=== PATIENT | male | born 1990 | race Two or more races ===

== ENCOUNTER 2020-10-27 19:48 | Emergency (ER) | payer MEDICAID, OTHER, SELFPAY ==
[~2020-10-27] VITALS: Ht 180.3 cm; Wt 72.6 kg
[2020-10-27] MEDS ORDERED: ACETAMINOPHEN 325 MG TAB PO ONE (20:45)
[2020-10-27 21:18] LABS: Basophils # (auto) 0 10 ^3/uL (0-0.2); Basophils % (auto) 0.3 % (0.0-2.0); Eosinophils # (auto) 0 10 ^3/uL (0-0.8); Eosinophils % (auto) 0.1 % (0.0-7.0); Hematocrit 47.3 % (41.0-53.0); Hemoglobin 16.6 g/dL (13.5-17.5); Lymphocytes # (auto) 1.6 10 ^3/uL (0.4-5.4); Lymphocytes % (auto) 30.8 % (10.0-50.0); Mean Corpuscular Hemoglobin 29.4 pg (28.0-32.0); Monocytes # (auto) 0.7 10 ^3/uL (0-1.3); Monocytes % (auto) 12.7 % (0.0-12.0); Neutrophils % (auto) 56.1 % (37.0-80.0); Nucleated Red Blood Cells % 0.3 %; Red Blood Cells 5.63 10^6/uL (4.5-5.90); Red Cell Distribution Width 13.4 % (11.8-14.3); White Blood Cell 5.4 10^3/uL (4.4-10.8)
[2020-10-27 21:40] LABS: Albumin 3.4 g/dL (3.4-5.0); Calcium 8.5 mg/dL (8.5-10.1); Potassium 3.7 mmol/L (3.5-5.1)
[2020-10-27 21:46] LABS: BUN/Creatinine Ratio 10.6; Bilirubin, Total 0.5 mg/dL (0.2-1.0); Total Protein 8.2 g/dL (6.4-8.2)
[2020-10-27] MEDS ORDERED: IBUPROFEN 600 MG TAB PO ONE (22:15)
[2020-10-28] MEDS ORDERED: cefTRIAXone 1GM/50ML D5W 50 ML IV ONE (04:00)
[2020-10-28] MEDS ORDERED: DOXYCYCLINE 100 MG TAB/CAP PO ONE (04:00)
[2020-10-28] MEDS ORDERED: methylPREDNISolone SOD SUCC 125 MG/2 ML VL IV ONE (04:00)
[2020-10-28] MEDS ORDERED: SODIUM CHLORIDE 0.9% 1,000 ML IV ONE (04:15)
[2020-10-28] MEDS ORDERED: ONDANSETRON HCL 4 MG/2 ML VIAL IV ONE (06:00)
[2020-10-28 07:46] VITALS: BP 108/59
== END 2020-10-28 08:03 | disposition home or self-care (01) ==
LOC: ER 19:48
DX: U07.1 COVID-19 (principal)
CPT/HCPCS: 36415; 71045; 80053; 85025; 87426; 96365; 96375; 99285; J0696; J2405; J2930; J7030

== ENCOUNTER 2020-11-02 13:14 | Inpatient (IN) | payer MEDICAID, OTHER ==
[~2020-11-02] VITALS: Ht 180.3 cm; Wt 79.7 kg
[2020-11-02 14:25] LABS: Basophils # (auto) 0 10 ^3/uL (0-0.2); Basophils % (auto) 0.2 % (0.0-2.0); Eosinophils # (auto) 0.2 10 ^3/uL (0-0.8); Eosinophils % (auto) 1.8 % (0.0-7.0); Hematocrit 47.1 % (41.0-53.0); Hemoglobin 16.7 g/dL (13.5-17.5); Lymphocytes # (auto) 1.4 10 ^3/uL (0.4-5.4); Lymphocytes % (auto) 14.6 % (10.0-50.0); Mean Corpuscular Hemoglobin 29.3 pg (28.0-32.0); Mean Corpuscular Hgb Conc. 35.5 g/dL (32.0-36.0); Mean Corpuscular Volume 82.5 fL (80.0-100.0); Monocytes # (auto) 1.2 10 ^3/uL (0-1.3); Monocytes % (auto) 12.5 % (0.0-12.0); Neutrophils # (auto) 6.9 10 ^3/uL (1.6-8.6); Neutrophils % (auto) 70.9 % (37.0-80.0); Nucleated Red Blood Cells % 0.1 %; Red Blood Cells 5.71 10^6/uL (4.5-5.90); White Blood Cell 9.7 10^3/uL (4.4-10.8)
[2020-11-02 15:01] LABS: Albumin 3.2 g/dL (3.4-5.0); Calcium 9.1 mg/dL (8.5-10.1); Potassium 3.6 mmol/L (3.5-5.1)
[2020-11-02 15:04] LABS: BUN/Creatinine Ratio 13.5; Bilirubin, Total 1.6 mg/dL (0.2-1.0); Total Protein 9.3 g/dL (6.4-8.2)
[2020-11-02] MEDS ORDERED: ACETAMINOPHEN 500 MG TAB PO ONE (17:00)
[2020-11-02] MEDS ORDERED: cefTRIAXone 1GM/50ML D5W 50 ML IV ONE (17:15)
[2020-11-02] MEDS ORDERED: ENOXAPARIN SOD 80 MG/0.8ML SYRINGE SC ONE (17:15)
[2020-11-02] MEDS ORDERED: AZITHROMYCIN 500MG/ 250ML 250 ML IV ONE (17:15)
[2020-11-02] MEDS ORDERED: LABETALOL HCL 5 MG/ML 4ML SYRINGE IV PRN (20:45)
[2020-11-02] MEDS ORDERED: MORPHINE SULFATE INJECTION 2 MG/ML SYRG IV PRN (20:45)
[2020-11-02] MEDS ORDERED: ACETAMINOPHEN 500 MG TAB PO PRN (20:45)
[2020-11-02] MEDS ORDERED: ONDANSETRON HCL 4 MG/2 ML VIAL IV PRN (20:45)
[2020-11-02] MEDS ORDERED: DOCUSATE CALCIUM 240 MG CAP PO PRN (20:45)
[2020-11-02] MEDS ORDERED: NITROGLYCERIN 0.4 MG SL TAB SL PRN (20:45)
[2020-11-02] MEDS: BUDESONIDE (INHALATION) 180 MCG IH IN SCH (22:00)
[2020-11-02] MEDS: ENOXAPARIN SOD 40 MG/0.4 ML SYRINGE SC SCH (22:00)
[2020-11-03 03:52] VITALS: BP 128/86
[2020-11-03 04:25] LABS: Basophils # (auto) 0 10 ^3/uL (0-0.2); Basophils % (auto) 0.3 % (0.0-2.0); Eosinophils # (auto) 0.2 10 ^3/uL (0-0.8); Eosinophils % (auto) 2.2 % (0.0-7.0); Hematocrit 45.6 % (41.0-53.0); Hemoglobin 15.9 g/dL (13.5-17.5); Lymphocytes # (auto) 1.4 10 ^3/uL (0.4-5.4); Lymphocytes % (auto) 13.5 % (10.0-50.0); Mean Corpuscular Hemoglobin 29.1 pg (28.0-32.0); Mean Corpuscular Hgb Conc. 34.9 g/dL (32.0-36.0); Mean Corpuscular Volume 83.4 fL (80.0-100.0); Monocytes # (auto) 1.5 10 ^3/uL (0-1.3); Monocytes % (auto) 14.2 % (0.0-12.0); Neutrophils # (auto) 7.3 10 ^3/uL (1.6-8.6); Neutrophils % (auto) 69.8 % (37.0-80.0); Nucleated Red Blood Cells % 0.1 %; Red Blood Cells 5.47 10^6/uL (4.5-5.90); Red Cell Distribution Width 13.1 % (11.8-14.3); White Blood Cell 10.4 10^3/uL (4.4-10.8)
[2020-11-03 04:45] LABS: Albumin 3.1 g/dL (3.4-5.0); Calcium 8.9 mg/dL (8.5-10.1); Magnesium 2.8 mg/dL (1.6-2.6); Potassium 3.3 mmol/L (3.5-5.1)
[2020-11-03 04:53] LABS: BUN/Creatinine Ratio 21.8; Bilirubin, Total 1.3 mg/dL (0.2-1.0); CRP High Sensitivity 13.3 mg/dL (< 0.3); Total Protein 8.8 g/dL (6.4-8.2)
[2020-11-03 04:58] LABS: Thyroid Stimulating Hormone 0.51 uIU/mL (0.358-3.74)
[2020-11-03] MEDS: ALBUTEROL SULF HFA 90MCG INH 200DOSE IN PRN (07:11)
[2020-11-03] MEDS: BUDESONIDE (INHALATION) 180 MCG IH IN SCH ×2 (07:11→22:00)
[2020-11-03 09:00] VITALS: BP 128/81
[2020-11-03] MEDS ORDERED: cefTRIAXone 1GM/50ML D5W 50 ML IV SCH (09:00)
[2020-11-03] MEDS ORDERED: AZITHROMYCIN 500MG/ 250ML 250 ML IV SCH (10:00)
[2020-11-03] MEDS: ENOXAPARIN SOD 40 MG/0.4 ML SYRINGE SC SCH ×2 (10:00→21:47)
[2020-11-03] MEDS: ZINC SULFATE 220mg CAP or TAB PO SCH (10:09)
[2020-11-03] MEDS: ASCORBIC ACID 1,000 MG TAB PO SCH (10:09)
[2020-11-03] MEDS: PANTOPRAZOLE 40 MG TAB PO SCH (10:09)
[2020-11-03] MEDS: DexAMETHasone SOD PHOS 10MG/1ML VIAL INJ IV SCH (10:09)
[2020-11-03] MEDS: CHOLECALCIFEROL (VITD3) 2,000 UNIT CAP/TAB PO SCH (10:09)
[2020-11-03] MEDS: MORPHINE SULFATE INJECTION 2 MG/ML SYRG IV PRN (10:10)
[2020-11-03] MEDS ORDERED: REMDESIVIR PER PHARMACY 0 ML IV SCH (10:15)
[2020-11-03] MEDS ORDERED: POTASSIUM EFFERVESENT TAB 25 MEQ GT ONE (10:30)
[2020-11-03] MEDS: DOXYCYCLINE 100MG/250ML 250 ML IV SCH ×2 (12:56→21:47)
[2020-11-03] MEDS: guaiFENesin-CODEINE Liq 5 ML UD PO PRN ×3 (13:03→23:08)
[2020-11-03] MEDS ORDERED: REMDESIVIR 200 MG in NS 210ml LOADING DOSE ADULT IV ONE (15:00)
[2020-11-03 17:00] VITALS: BP 117/84
[2020-11-03 20:00] VITALS: BP 116/76
[2020-11-03 22:00] VITALS: BP 127/72
[2020-11-04] MEDS: ALBUTEROL SULF HFA 90MCG INH 200DOSE IN PRN ×3 (01:28→22:18)
[2020-11-04 05:00] VITALS: BP 104/66
[2020-11-04 05:07] LABS: Urine WBC None Seen /hpf (0 - 3)
[2020-11-04] MEDS: guaiFENesin-CODEINE Liq 5 ML UD PO PRN ×4 (05:19→22:45)
[2020-11-04 05:20] LABS: Urine Bacteria NONE SEEN /hpf (None Seen); Urine Blood Negative /uL (Negative); Urine Specific Gravity 1.009 (1.001-1.035)
[2020-11-04] MEDS: BUDESONIDE (INHALATION) 180 MCG IH IN SCH ×2 (07:34→22:17)
[2020-11-04 08:02] LABS: Basophils # (auto) 0 10 ^3/uL (0-0.2); Basophils % (auto) 0.3 % (0.0-2.0); Eosinophils # (auto) 0 10 ^3/uL (0-0.8); Eosinophils % (auto) 0.1 % (0.0-7.0); Hematocrit 41.4 % (41.0-53.0); Hemoglobin 14.4 g/dL (13.5-17.5); Lymphocytes # (auto) 1.6 10 ^3/uL (0.4-5.4); Lymphocytes % (auto) 18.5 % (10.0-50.0); Mean Corpuscular Hemoglobin 29.1 pg (28.0-32.0); Mean Corpuscular Hgb Conc. 34.7 g/dL (32.0-36.0); Monocytes # (auto) 1.1 10 ^3/uL (0-1.3); Monocytes % (auto) 12.2 % (0.0-12.0); Neutrophils % (auto) 68.9 % (37.0-80.0); Nucleated Red Blood Cells % 0.1 %; Red Blood Cells 4.93 10^6/uL (4.5-5.90); Red Cell Distribution Width 13.3 % (11.8-14.3); White Blood Cell 8.8 10^3/uL (4.4-10.8)
[2020-11-04 08:22] LABS: Albumin 2.5 g/dL (3.4-5.0); Calcium 8.3 mg/dL (8.5-10.1); Potassium 3.6 mmol/L (3.5-5.1)
[2020-11-04 08:24] LABS: BUN/Creatinine Ratio 19.7
[2020-11-04 08:27] LABS: Bilirubin, Total 0.8 mg/dL (0.2-1.0); Total Protein 7.8 g/dL (6.4-8.2)
[2020-11-04] MEDS: ENOXAPARIN SOD 40 MG/0.4 ML SYRINGE SC SCH ×2 (08:48→22:15)
[2020-11-04] MEDS: ZINC SULFATE 220mg CAP or TAB PO SCH (08:48)
[2020-11-04] MEDS: PANTOPRAZOLE 40 MG TAB PO SCH (08:48)
[2020-11-04] MEDS: DOXYCYCLINE 100MG/250ML 250 ML IV SCH ×2 (08:48→22:15)
[2020-11-04] MEDS: CHOLECALCIFEROL (VITD3) 2,000 UNIT CAP/TAB PO SCH (08:48)
[2020-11-04] MEDS: DexAMETHasone SOD PHOS 10MG/1ML VIAL INJ IV SCH (08:48)
[2020-11-04] MEDS: ASCORBIC ACID 1,000 MG TAB PO SCH (08:48)
[2020-11-04 09:00] VITALS: BP 118/71
[2020-11-04 13:00] VITALS: BP 116/67
[2020-11-04] MEDS: REMDESIVIR 100mg 100 MG in SODIUM CHL 0.9% 230 ML IV SCH (16:10)
[2020-11-04 17:00] VITALS: BP 121/69
[2020-11-04 20:00] VITALS: BP 116/76
[2020-11-04 22:00] VITALS: BP 125/57
[2020-11-04] MEDS: MORPHINE SULFATE INJECTION 2 MG/ML SYRG IV PRN (22:46)
[2020-11-05 05:00] VITALS: BP 110/67
[2020-11-05] MEDS: guaiFENesin-CODEINE Liq 5 ML UD PO PRN (05:57)
[2020-11-05] MEDS: ALBUTEROL SULF HFA 90MCG INH 200DOSE IN PRN ×2 (07:08→22:55)
[2020-11-05] MEDS: BUDESONIDE (INHALATION) 180 MCG IH IN SCH ×2 (07:08→22:00)
[2020-11-05 07:15] LABS: Albumin 2.4 g/dL (3.4-5.0); BUN/Creatinine Ratio 14.7; Calcium 8.2 mg/dL (8.5-10.1); Potassium 3.8 mmol/L (3.5-5.1)
[2020-11-05 07:17] LABS: Bilirubin, Total 0.6 mg/dL (0.2-1.0); Total Protein 7.3 g/dL (6.4-8.2)
[2020-11-05 09:00] VITALS: BP 111/71
[2020-11-05] MEDS: DexAMETHasone SOD PHOS 10MG/1ML VIAL INJ IV SCH (09:10)
[2020-11-05] MEDS: CHOLECALCIFEROL (VITD3) 2,000 UNIT CAP/TAB PO SCH (09:11)
[2020-11-05] MEDS: ZINC SULFATE 220mg CAP or TAB PO SCH (09:11)
[2020-11-05] MEDS: ENOXAPARIN SOD 40 MG/0.4 ML SYRINGE SC SCH ×2 (09:11→21:09)
[2020-11-05] MEDS: ASCORBIC ACID 1,000 MG TAB PO SCH (09:11)
[2020-11-05] MEDS: DOXYCYCLINE 100MG/250ML 250 ML IV SCH ×2 (09:11→21:09)
[2020-11-05] MEDS: PANTOPRAZOLE 40 MG TAB PO SCH (09:40)
[2020-11-05] MEDS ORDERED: guaiFENesin-DM 100/10mg/5ml SYR PO ONE (12:30)
[2020-11-05 13:00] VITALS: BP 117/71
[2020-11-05] MEDS: REMDESIVIR 100mg 100 MG in SODIUM CHL 0.9% 230 ML IV SCH (14:37)
[2020-11-05 17:00] VITALS: BP 117/64
[2020-11-05 20:00] VITALS: BP 114/70
[2020-11-05] MEDS: guaiFENesin-DM 100/10mg/5ml SYR PO PRN (21:09)
[2020-11-05] MEDS: MORPHINE SULFATE INJECTION 2 MG/ML SYRG IV PRN (21:38)
[2020-11-05 22:00] VITALS: BP 114/72
[2020-11-06 01:55] VITALS: BP 114/72
[2020-11-06 05:00] VITALS: BP 103/62
[2020-11-06 07:07] LABS: Basophils # (auto) 0 10 ^3/uL (0-0.2); Basophils % (auto) 0.2 % (0.0-2.0); Eosinophils # (auto) 0 10 ^3/uL (0-0.8); Eosinophils % (auto) 0.3 % (0.0-7.0); Hematocrit 38.2 % (41.0-53.0); Hemoglobin 13.3 g/dL (13.5-17.5); Lymphocytes # (auto) 2.7 10 ^3/uL (0.4-5.4); Lymphocytes % (auto) 35.7 % (10.0-50.0); Mean Corpuscular Hemoglobin 29.7 pg (28.0-32.0); Mean Corpuscular Hgb Conc. 34.9 g/dL (32.0-36.0); Monocytes # (auto) 0.9 10 ^3/uL (0-1.3); Monocytes % (auto) 11.1 % (0.0-12.0); Neutrophils % (auto) 52.7 % (37.0-80.0); Red Blood Cells 4.49 10^6/uL (4.5-5.90); Red Cell Distribution Width 13.2 % (11.8-14.3); White Blood Cell 7.7 10^3/uL (4.4-10.8)
[2020-11-06 07:12] LABS: Albumin 2.4 g/dL (3.4-5.0); BUN/Creatinine Ratio 14.9; Calcium 8.3 mg/dL (8.5-10.1); Potassium 3.8 mmol/L (3.5-5.1)
[2020-11-06 07:15] LABS: Bilirubin, Total 0.7 mg/dL (0.2-1.0); Total Protein 6.9 g/dL (6.4-8.2)
[2020-11-06 09:00] VITALS: BP 116/68
[2020-11-06] MEDS: DexAMETHasone SOD PHOS 10MG/1ML VIAL INJ IV SCH (09:22)
[2020-11-06] MEDS: DOXYCYCLINE 100MG/250ML 250 ML IV SCH (09:22)
[2020-11-06] MEDS: ZINC SULFATE 220mg CAP or TAB PO SCH (09:22)
[2020-11-06] MEDS: guaiFENesin-DM 100/10mg/5ml SYR PO PRN ×2 (09:22→13:46)
[2020-11-06] MEDS: ENOXAPARIN SOD 40 MG/0.4 ML SYRINGE SC SCH (09:23)
[2020-11-06] MEDS: ASCORBIC ACID 1,000 MG TAB PO SCH (09:23)
[2020-11-06] MEDS: PANTOPRAZOLE 40 MG TAB PO SCH (09:23)
[2020-11-06] MEDS: CHOLECALCIFEROL (VITD3) 2,000 UNIT CAP/TAB PO SCH (09:23)
[2020-11-06] MEDS: ALBUTEROL SULF HFA 90MCG INH 200DOSE IN PRN (09:35)
[2020-11-06] MEDS: BUDESONIDE (INHALATION) 180 MCG IH IN SCH (09:35)
[2020-11-06] MEDS ORDERED: ONDA-144 PO (11:07)
[2020-11-06] MEDS ORDERED: ASCO10003 PO (11:07)
[2020-11-06] MEDS ORDERED: DEXT1SYP9 PO (11:07)
[2020-11-06] MEDS ORDERED: DOXY-332 PO (11:07)
[2020-11-06] MEDS ORDERED: ALBUAER3 IN (11:07)
[2020-11-06] MEDS ORDERED: DEXA4TAB90 PO (11:09)
[2020-11-06 13:00] VITALS: BP 114/71
[2020-11-06] MEDS: REMDESIVIR 100mg 100 MG in SODIUM CHL 0.9% 230 ML IV SCH (13:46)
[2020-11-06 17:00] VITALS: BP 118/73
== END 2020-11-06 17:30 | disposition home or self-care (01) | DRG 137 ==
LOC: ER 13:14 → TELE 20:37 → TELE-EAST 11-03 09:06
PROVIDERS: ADMIT Family Medicine; ATTEND Internal Medicine Pulmonary Disease
PROC: XW033E5 Introduction of Remdesivir Anti-infective into Peripheral Vein, Percutaneous Approach, New Technology Group 5 (ICD-10-PCS; principal; 2020-11-03)
DX: U07.1 COVID-19 (principal); J96.01 Acute respiratory failure with hypoxia; J12.82 Pneumonia due to coronavirus disease 2019; E87.1 Hypo-osmolality and hyponatremia; E87.6 Hypokalemia
CPT/HCPCS: 36415; 71045; 80053; 81001; 82306; 82728; 83605; 83615; 83735; 84443; 85025; 85379; 86141; 87040; 87426; 93970; 94640; 96365; 96368; 96372; 99291; G0378; J0696; J1100; J3490